=== PATIENT | female | born 1985 | race Caucasian/White ===

== ENCOUNTER 2021-10-19 15:18 | Outpatient (REF) | payer MEDICARE, MEDICAID, SELFPAY ==
--- NOTE | 2021-10-19 12:00 | PAPFT_PTH ---
PATIENT: Marcie Mack LOC: N U#:[id number] AGE/SX: 36/F ROOM: RE10/19/[address]: Macy Fisher NP : [id number] BED: DIS: 10/19/2021 SPEC #: [id number] RECD: 10/19/21 18:15 STATUS: NADYA REQ #: [id number] TANIA: 10/19/21 12:[address]: Macy Fisher NP DEPT: [facility] Cytology RECD BY: Laurie Jane ENTERED: 10/19/21 18:16 SP TYPE: PAPFT OTHR DR: Lance Hernandez Tissues: 1 - CX/ENDOCX FOR PAP SMEARS Procedures: PAP THIN PREP/[facility] Screening HPV DNA PROBE Comments: [id number]
== END 2021-10-19 15:19 | disposition home or self-care (01) ==
LOC: LBN 15:18
PROVIDERS: PCP Internal Medicine; Visit Provider Nurse Practitioner Women's Health
DX: Z11.51 Encounter for screening for human papillomavirus (HPV) (principal); Z12.4 Encounter for screening for malignant neoplasm of cervix; Z01.419 Encounter for gynecological examination (general) (routine) without abnormal findings
CPT/HCPCS: 88142; 87624

== ENCOUNTER 2021-10-28 17:11 | Outpatient (REF) | payer MEDICARE, MEDICAID, SELFPAY ==
[2021-10-28 21:53] LABS: Calculated LDL 79 mg/dL (<100); Cholesterol 146 mg/dL (<200); HDL Cholesterol 45 mg/dL (40-60); TSH 1.38 uIU/mL (0.36-3.74); Triglyceride 114 mg/dL (<150)
[2021-10-28 22:40] LABS: FREE T4 0.96 ng/dL (0.76-1.46)
[2021-10-29 18:25] LABS: Thyroglobulin Antibody 22 U/mL (<=60); Thyroperoxidase Antibody <28 U/mL (<=60)
== END 2021-10-28 17:12 | disposition home or self-care (01) ==
LOC: NCHCN 17:11
PROVIDERS: PCP Internal Medicine; Visit Provider Nurse Practitioner Family
DX: E11.65 Type 2 diabetes mellitus with hyperglycemia (principal); E04.2 Nontoxic multinodular goiter
CPT/HCPCS: 80061; 86376; 84439; 84443

== ENCOUNTER 2021-12-29 14:42 | Outpatient (REF) | payer MEDICARE, MEDICAID, SELFPAY ==
[2021-12-29 20:04] LABS: Anion Gap 11.5 mmol/L (3-11); BUN 16 mg/dL (7-18); CO2 25.5 mmol/L (21.0-32.0); Calcium 9.1 mg/dL (8.5-10.1); Chloride 103 mmol/L (98-107); Glucose 113 mg/dL (74-106); Sodium 140 mmol/L (136-145)
[2021-12-29 20:11] LABS: COMMENT (LAB VIEW ONLY) 160.23 mg/dL; Microalb ug/mg Crea 6.1 ug/mg Cr
== END 2021-12-29 14:43 | disposition home or self-care (01) ==
LOC: NCHCN 14:42
PROVIDERS: PCP Internal Medicine; Visit Provider Nurse Practitioner Family
DX: E11.65 Type 2 diabetes mellitus with hyperglycemia (principal)
CPT/HCPCS: 80048; 82043; 82570

== ENCOUNTER → 2022-03-04 01:36 | Outpatient (CLI) | payer MEDICARE, MEDICAID, SELFPAY ==
--- NOTE | 2022-03-04 07:15 | DI.US_ITS ---
Exam(s) US PELVIS TRANSVAGINAL EXAM: US PELVIS TRANSVAGINAL CLINICAL HISTORY: Heavy bleeding,N92.0. TECHNIQUE: Transabdominal and transvaginal pelvic ultrasound was performed using standard protocol. COMPARISON: No exams were available for comparison FINDINGS: Examination limited by patient body habitus. The right kidney was not visualized sonographically. KIDNEYS: The right kidney was not visualized sonographically. There is very limited visualization of the left kidney. UTERUS: Position: Anteverted. Size: 10.4 long by 3.7 AP by 4.2 transverse cm Endometrium: There is a small amount of fluid seen within the endometrial canal in the lower uterine segment and cervix. Myometrium: The fundus of the uterus is not well visualized. Cervix: Cervical nabothian cyst is seen. OVARIES: Status post right oophorectomy. Left: The left ovary cannot be seen transabdominally or transvaginally. CUL-DE-SAC: Free fluid: None. Other: None. IMPRESSION: 1. Examination is compromised due to patient body habitus. The left ovary, uterine fundus and right kidney were not well visualized sonographically. 2. There is a small amount of fluid in the endometrial canal in the lower uterine segment. 3. Patient is status post right oophorectomy. 4. The left ovary was not visualized transabdominally or transvaginally secondary to the patient body habitus. DATA REPOSITORY:
== END ==
PROVIDERS: PCP Nurse Practitioner Family; Visit Provider Nurse Practitioner Women's Health
DX: N92.0 Excessive and frequent menstruation with regular cycle (principal); Z90.721 Acquired absence of ovaries, unilateral
CPT/HCPCS: 76830; 76856

== ENCOUNTER 2022-07-26 12:01 | Outpatient (REF) | payer MEDICARE, MEDICAID, SELFPAY ==
[2022-07-26 19:29] LABS: Anion Gap 8.4 mmol/L (3-11); BUN 19 mg/dL (7-18); CO2 24.6 mmol/L (21.0-32.0); CREATININE 1.1 mg/dL (0.55-1.02); Calcium 8.9 mg/dL (8.5-10.1); Chloride 106 mmol/L (98-107); Estimated GFR 65.55 (mL/min/1.73m2); Glucose 110 mg/dL (74-106); Potassium 3.9 mmol/L (3.5-5.1); Sodium 139 mmol/L (136-145)
== END 2022-07-26 12:02 | disposition home or self-care (01) ==
LOC: NCHCN 12:01
PROVIDERS: PCP Nurse Practitioner Family; Visit Provider Nurse Practitioner Family
DX: E11.65 Type 2 diabetes mellitus with hyperglycemia (principal)
CPT/HCPCS: 80048

== ENCOUNTER 2022-10-25 13:57 | Outpatient (REF) | payer MEDICARE, MEDICAID, SELFPAY ==
[2022-10-25 18:54] LABS: Abs Immature Grans 0.03 10^3/uL (0.0-0.06); Absolute Basophil Count 0.05 10^3/uL (0.0-0.2); Absolute Eosinophil Count 0.23 10^3/uL (0.0-0.7); Absolute Lymphocyte Count 2.16 10^3/uL (1.2-3.4); Absolute Monocyte Count 0.47 10^3/uL (0.1-0.8); Absolute Neutrophil Count 7.63 10^3/uL (1.2-6.7); Basophils % 0.5; Eosinophils % 2.2; HCT 38.7 % (36.0-46.0); HGB 12.2 g/dL (11.2-15.7); Immature Grans % 0.3; Lymphocytes % 20.4; MCH 26.6 pg (27.0-33.0); MCHC 31.5 % (32.0-36.0); MCV 85 fL (80-95); MPV 10.7 fL (8.0-11.0); Monocytes % 4.4; Neutrophils % 72.2; Platelet Count 332 10^3/uL (130-400); RBC 4.58 10^6/uL (3.93-5.22); RDW 15.3 % (11.7-14.6); RDW-SD 46.7 fL; WBC 10.57 10^3/uL (4.4-10.8)
[2022-10-25 19:00] LABS: ESR 50 mm/hr (0-20)
[2022-10-25 19:03] LABS: ALT 50 U/L (14-59); AST 24 U/L (15-37); Albumin 3.7 g/dL (3.4-5.0); Alkaline Phosphatase 99 U/L (46-116); BUN 16 mg/dL (7-18); Bilirubin, Total 0.2 mg/dL (0.2-1.0); Calcium 9.1 mg/dL (8.5-10.1); Chloride 107 mmol/L (98-107); Estimated GFR 73.49 (mL/min/1.73m2); Glucose 176 mg/dL (74-106); Potassium 3.7 mmol/L (3.5-5.1); Sodium 141 mmol/L (136-145); Total Protein 7.7 g/dL (6.4-8.2)
[2022-10-26 17:58] LABS: Rheumatoid Factor 25.5 IU/mL (<12.0)
[2022-10-27 12:34] LABS: ANA Interpretation Negative (Negative)
== END 2022-10-25 13:58 | disposition home or self-care (01) ==
LOC: NCHCN 13:57
PROVIDERS: PCP Nurse Practitioner Family; Visit Provider Nurse Practitioner Family
DX: R21 Rash and other nonspecific skin eruption (principal); E04.2 Nontoxic multinodular goiter
CPT/HCPCS: 80053; 85652; 85025; 86038; 86431

== ENCOUNTER 2022-11-24 12:55 | Outpatient (REF) | payer MEDICARE, MEDICAID, SELFPAY ==
[2022-11-25 11:46] LABS: Microalb ug/mg Crea 4.7 ug/mg Cr
[2022-11-25 11:52] LABS: BUN 19 mg/dL (7-18); CREATININE 1.1 mg/dL (0.55-1.02); Chloride 107 mmol/L (98-107); Estimated GFR 65.55 (mL/min/1.73m2); Glucose 121 mg/dL (74-106); Potassium 3.8 mmol/L (3.5-5.1); Sodium 138 mmol/L (136-145)
[2022-11-25 12:15] LABS: Calcium 8.9 mg/dL (8.5-10.1)
[2022-11-26 10:29] LABS: Cyclic Citrullinated Peptide <2.5 U/mL (<5.0)
== END 2022-11-24 12:56 | disposition home or self-care (01) ==
LOC: NCHCN 12:55
PROVIDERS: PCP Nurse Practitioner Family; Visit Provider Nurse Practitioner Family
DX: E11.9 Type 2 diabetes mellitus without complications (principal); M25.50 Pain in unspecified joint
CPT/HCPCS: 80048; 86200; 82043; 82570

== ENCOUNTER 2023-01-05 14:47 | Outpatient (REF) | payer MEDICARE, MEDICAID, SELFPAY ==
[2023-01-05 20:48] LABS: Anion Gap 10.2 mmol/L (3-11); BUN 21 mg/dL (7-18); CO2 20.8 mmol/L (21.0-32.0); Calcium 8.9 mg/dL (8.5-10.1); Chloride 110 mmol/L (98-107); Estimated GFR 73.49 (mL/min/1.73m2); Glucose 115 mg/dL (74-106); Sodium 141 mmol/L (136-145)
== END 2023-01-05 14:48 | disposition home or self-care (01) ==
LOC: NCHCN 14:47
PROVIDERS: PCP Nurse Practitioner Family; Visit Provider Nurse Practitioner Family
DX: R94.4 Abnormal results of kidney function studies (principal)
CPT/HCPCS: 80048

== ENCOUNTER 2023-03-23 14:55 | Outpatient (REF) | payer MEDICARE, MEDICAID, SELFPAY ==
[2023-03-25 14:01] LABS: Chlamydia Result Negative (Negative); GC Result Negative (Negative)
== END 2023-03-23 14:56 | disposition home or self-care (01) ==
LOC: LBN 14:55
PROVIDERS: PCP Nurse Practitioner Family; Visit Provider Nurse Practitioner Women's Health
DX: Z11.3 Encounter for screening for infections with a predominantly sexual mode of transmission (principal)
CPT/HCPCS: 87491; 87591

== ENCOUNTER 2023-04-05 18:31 | Outpatient (REF) | payer MEDICARE, MEDICAID, SELFPAY ==
[2023-04-07 09:43] LABS: Hepatitis C Ab w Rflx HCV PCR Negative (Negative)
[2023-04-08 13:23] LABS: SS-A Antibody 2.6 Units (<20.0)
[2023-04-08 13:28] LABS: SS-B (La) Ab, IgG 1.3 Units (<20.0)
== END 2023-04-05 18:32 | disposition home or self-care (01) ==
LOC: NCHCN 18:31
PROVIDERS: PCP Nurse Practitioner Family; Visit Provider Nurse Practitioner Family
DX: M35.00 Sjogren syndrome, unspecified (principal)
CPT/HCPCS: 86803; 86235

== ENCOUNTER → 2023-04-18 02:15 | Outpatient (CLI) | payer MEDICARE, MEDICAID, SELFPAY ==
--- NOTE | 2023-04-18 12:15 | DI.MAMMO_ITS ---
Exam(s) MAMMO SCREENING EXAM: MAMMO SCREENING CLINICAL HISTORY: screening. TECHNIQUE: Bilateral full field digital CC and MLO mammographic images were obtained with 3D tomosyn thesis and utilizing computer aided detection (CAD). COMPARISON: None. This is a baseline mammogram on 38-year-old patient FINDINGS: Fibroglandular tissue pattern is predominately fatty. There are no CAD designations There are no spiculated masses nor malignant appearing microcalcification groups. There is no significant architectural distortion nor skin thickening-retraction. IMPRESSION: No radiographic evidence of malignancy. BI-RADS Category 1 - Negative Breast Density - Category A - Almost entirely fatty Breast density Category C or D implies that the patient has dense breast tissue. Dense breast tissue can make it harder to find cancer on a mammogram. Dense breast tissue is also associated with an incr eased risk of breast cancer. This information about the result of the mammogram report was provided to the patient to raise their awareness. Use this report when you speak with the patient about their risks for breast cancer, which includes their family history. At that time, you may recommend additional screening tests (Ultrasoun d or MRI) as these tests may add significant information. A negative radiographic report should not delay biopsy if a dominant or clinically suspicious mass is present. Up to ten percent of cancers are not identified on mammography. A negative report may reinforce clinical impression. Adenosis and dense breasts may obscure an underlying neoplasm. False positive reports average 6 to 10%. Patient will receive a letter notifying them of these results.
== END ==
PROVIDERS: PCP Nurse Practitioner Family; Visit Provider Nurse Practitioner Women's Health
DX: Z12.31 Encounter for screening mammogram for malignant neoplasm of breast (principal)
CPT/HCPCS: 77063; 77067

== ENCOUNTER 2023-10-05 14:29 | Outpatient (REF) | payer MEDICARE, MEDICAID, SELFPAY ==
[2023-10-05 20:48] LABS: Anion Gap 9.9 mmol/L (3-11); BUN 13 mg/dL (7-18); CO2 26.1 mmol/L (21.0-32.0); CREATININE 0.9 mg/dL (0.55-1.02); Calcium 9.1 mg/dL (8.5-10.1); Chloride 105 mmol/L (98-107); Estimated GFR 82.88 (mL/min/1.73m2); Glucose 108 mg/dL (74-106); Potassium 4.1 mmol/L (3.5-5.1); Sodium 141 mmol/L (136-145); TSH 0.99 uIU/mL (0.36-3.74)
== END 2023-10-05 14:30 | disposition home or self-care (01) ==
LOC: NCHCN 14:29
PROVIDERS: PCP Nurse Practitioner Family; Visit Provider Nurse Practitioner Family
DX: E11.65 Type 2 diabetes mellitus with hyperglycemia (principal); E04.2 Nontoxic multinodular goiter
CPT/HCPCS: 80048; 84443

== ENCOUNTER → 2024-03-26 00:29 | Outpatient (CLI) | payer MEDICARE, MEDICAID, SELFPAY ==
--- NOTE | 2024-03-26 14:05 | DI.RAD_ITS ---
Exam(s) XR FOOT RT COMPLETE EXAM: XR FOOT RT COMPLETE CLINICAL HISTORY: Right foot pain,M79.671. TECHNIQUE: 2D digital imaging was performed. COMPARISON: No exams were available for comparison FINDINGS: 3 views There is dorsal soft tissue swelling over the metatarsals but no fractures evident nor diastasis of t he Lisfranc joint. Great toe metatarsophalangeal joint appears unremarkable as do the other MTP join ts and interphalangeal joints as well as the tarsometatarsal joints. There is a typical exostoses of f the medial cortex of the distal phalanx of the great toe, a common benign occurrence. There is a m oderate size inferior calcaneal spur. Also noted is an enthesophyte on the posterior calcaneus Achil les insertion site. Mild degenerative changes noted in the dorsal aspect of the talonavicular joint. IMPRESSION: Dorsal soft tissue swelling. No fractures. No radiopaque foreign bodies nor gas in soft tissues. N o evidence of osteomyelitis DATA REPOSITORY: RADIATION DOSE DELIVERED:
== END ==
PROVIDERS: PCP Nurse Practitioner Family; Visit Provider Podiatrist
DX: M79.671 Pain in right foot (principal); M79.89 Other specified soft tissue disorders
CPT/HCPCS: 29580; 29850; 73630

== ENCOUNTER 2024-04-18 01:10 | Outpatient (CLI) | payer MEDICARE, MEDICAID, SELFPAY ==
--- NOTE | 2024-04-18 07:00 | DI.RAD_ITS ---
Exam(s) XR FOOT RT COMPLETE EXAM: XR FOOT RT COMPLETE CLINICAL HISTORY: f/u Stress fracture right second metatarsal,M84.374a. TECHNIQUE: 2D digital imaging was performed of the right foot. Three images were obtained. AP, obl ique and lateral views were obtained. COMPARISON: CR XR FOOT RT COMPLETE from 03/26/2024 FINDINGS: BONES: No periosteal reaction is seen in the right 2nd metatarsal bone. There is an oblique lucency seen in the neck of the 4th metatarsal bone. It is only appreciated on the AP view. Artifact versus fracture. Please correlate clinically. No bony destructive lesion is seen. There is an enthesophyt e at the posterior calcaneus. There is a plantar calcaneal spur. JOINTS: No dislocation present. Mild degenerative changes are seen in the foot particularly at the ta lonavicular joint. SOFT TISSUE: Normal. IMPRESSION: 1. Unremarkable appearance of the 2nd metatarsal bone without evidence of periosteal reaction. 2. Lucency seen across the neck of the 4th metatarsal bone on the AP view only. Artifact versus frac ture. Please correlate clinically. DATA REPOSITORY: RADIATION DOSE DELIVERED:
== END 2024-04-18 01:30 ==
LOC: DI 01:10
PROVIDERS: PCP Nurse Practitioner Family; Visit Provider Podiatrist
DX: M79.671 Pain in right foot (principal)
CPT/HCPCS: 20550; 29580; 29850; 73630

== ENCOUNTER → 2024-05-22 09:00 | Outpatient (BNVA) | payer MEDICARE, MEDICAID, SELFPAY | PROVIDERS: PCP Nurse Practitioner Family; Referring Provider Nurse Practitioner Family; Visit Provider Podiatrist | DX: M72.2 Plantar fascial fibromatosis (principal); M84.374D Stress fracture, right foot, subsequent encounter for fracture with routine healing; X58.XXXD Exposure to other specified factors, subsequent encounter; M76.71 Peroneal tendinitis, right leg; Q66.71 Congenital pes cavus, right foot; Q66.72 Congenital pes cavus, left foot | CPT/HCPCS: 99213 ==

== ENCOUNTER 2025-01-01 14:44 | Outpatient (CLI) | payer MEDICARE, MEDICAID, SELFPAY ==
--- NOTE | 2025-01-01 13:45 | DI.RAD_ITS ---
Exam(s) XR SHOULDER LT COMPLETE 2+V EXAM: XR SHOULDER LT COMPLETE 2+V CLINICAL HISTORY: left shoulder pain. TECHNIQUE: 2D digital imaging was performed. Three views. COMPARISON: CR XR SHOULDER MIN 2V RT from 12/19/2024 FINDINGS: BONES: No acute fracture is present. No bony destructive lesion is seen. JOINTS: No dislocation present. Glenohumeral joint space is maintained. Mild spurring at the inferi or AC joint. SOFT TISSUE: Normal. Calcification projecting anterior to the acromion. IMPRESSION: Calcification projecting anterior to the acromion. DATA REPOSITORY: RADIATION DOSE DELIVERED:
== END 2025-01-01 14:45 | disposition home or self-care (01) ==
LOC: DIORS 14:44
PROVIDERS: PCP Nurse Practitioner Family; Referring Provider Nurse Practitioner Family; Visit Provider Student in an Organized Health Care Education/Training Program
DX: M19.011 Primary osteoarthritis, right shoulder; M19.012 Primary osteoarthritis, left shoulder; E66.9 Obesity, unspecified; Z68.44 Body mass index [BMI] 60.0-69.9, adult; E11.9 Type 2 diabetes mellitus without complications
CPT/HCPCS: 99203; 73030

== ENCOUNTER → 2025-01-17 09:19 | Outpatient (BNVA) | payer MEDICARE, MEDICAID, SELFPAY | PROVIDERS: PCP Nurse Practitioner Family; Referring Provider Nurse Practitioner Family; Visit Provider Physician Assistant | DX: Z68.44 Body mass index [BMI] 60.0-69.9, adult (principal); M25.561 Pain in right knee; M25.562 Pain in left knee; M17.0 Bilateral primary osteoarthritis of knee | CPT/HCPCS: 20610 ×2; J1010 ==

== ENCOUNTER 2025-02-01 00:28 | Outpatient (CLI) | payer MEDICARE, MEDICAID, SELFPAY ==
--- NOTE | 2025-02-01 11:06 | DI.RAD_ITS ---
Exam(s) RF JOINT INJ. FLUORO GUID RAD EXAM: RF JOINT INJ. FLUORO GUID RAD CLINICAL HISTORY: RIGHT SHOULDER PAIN,arthritis rt glenohumeral joint,m19.011,fluoro guided. TECHNIQUE: 2D and realtime digital imaging was performed. CONTRAST MATERIAL: Intra-articular [id number]-598-8 cc COMPARISON: No exams were available for comparison FINDINGS: This fluoroscopic guided right shoulder injection was performed at the request of the referring ortho pedic surgeon. The patient was consented prior to this procedure. Patient was placed in the supine position on the fluoroscopy table. Using sterile technique and adequate skin-subcutaneous anesthesia, fluoroscopic guidance was used to advance a 22 gauge spinal needle into the glenohumeral joint using an anterior approach. Intra-artic ular position was confirmed with injection of 2 cc iodinated contrast. Thereafter a sterile solution of 40 milligram Depo-Medrol and 3 cc of 0.5 percent bupivacaine was inj ected into the joint space. Needle was removed. Band-Aid applied. The patient tolerated this procedure well and there were no intraprocedural complications. IMPRESSION: Successful right shoulder glenohumeral joint fluoroscopic guided steroid injection, as described afsaneh vera RADIATION DOSE DELIVERED: Kar=11.8mGy
--- NOTE | 2025-02-01 11:50 | DI.RAD_ITS ---
Exam(s) RF JOINT INJ. FLUORO GUID RAD EXAM: RF JOINT INJ. FLUORO GUID RAD CLINICAL HISTORY: LEFT SHOULDER PAIN,arthritis lt glenohumeral joint,m19.012. TECHNIQUE: 2D and realtime digital imaging was performed. CONTRAST MATERIAL: Oral barium Oral water soluble contrast was administered. COMPARISON: No exams were available for comparison FINDINGS: This left fluoroscopic guided shoulder glenohumeral joint injection performed at the request of the jose milligan orthopedic surgeon. Patient was consented prior to this procedure. Patient was placed in the supine position on the fluoroscopy table. Using sterile technique and adequate skin-subcutaneous anesthesia, fluoroscopic guidance was used to advance a 22 gauge spinal needle into the glenohumeral joint via an anterior approach. Intra-articul ar position was confirmed with injection of 1-2 cc of iodinated contrast. Thereafter are a sterile s olution of 40 milligram Depo-Medrol and 3 cc of 0.5 percent bupivacaine was injected into the joint s pace. The needle was removed. Band-Aid applied. Patient tolerated this procedure well and there were no intraprocedural complications.. IMPRESSION: Successful left shoulder glenohumeral joint steroid injection using fluoroscopic guidance RADIATION DOSE DELIVERED: Kar=9.93mGy
[2025-02-01] MEDS: methylPREDNISolone ACETATE 40 MG/ML VIAL IM (12:05)
[2025-02-01] MEDS: Bupivacaine 0.5% Pres-Free 10 ML VIAL 5 ML IJ (12:06)
[2025-02-01] MEDS: Omnipaque 300 MG/ML 10 ML BTL IJ (12:08)
[2025-02-01] MEDS: Lidocaine 1% Pres-Free 30 ML VIAL IJ (12:09)
== END 2025-02-01 00:48 ==
LOC: DI 00:29
PROVIDERS: PCP Nurse Practitioner Family; Visit Provider Student in an Organized Health Care Education/Training Program
DX: M19.011 Primary osteoarthritis, right shoulder (principal); M19.012 Primary osteoarthritis, left shoulder
CPT/HCPCS: 20610; 77002; J0665; J1010

== ENCOUNTER 2025-05-16 14:56 | Outpatient (REF) | payer MEDICARE, MEDICAID, SELFPAY ==
[2025-05-16 19:52] LABS: ALT 26 U/L (14-59); AST 15 U/L (15-37); Albumin 3.7 g/dL (3.4-5.0); Alkaline Phosphatase 80 U/L (46-116); Anion Gap 10.0 mmol/L (3-11); BUN 12 mg/dL (7-18); Bilirubin, Total 0.3 mg/dL (0.2-1.0); CO2 25.0 mmol/L (21.0-32.0); Calcium 9.6 mg/dL (8.5-10.1); Calculated LDL 72 mg/dL (<100); Chloride 102 mmol/L (98-107); Cholesterol 145 mg/dL (<200); Estimated GFR 64.34 (mL/min/1.73m2); Glucose 116 mg/dL (74-106); HDL Cholesterol 46 mg/dL (>or=50); Potassium 3.9 mmol/L (3.5-5.1); Sodium 137 mmol/L (136-145); Total Protein 7.7 g/dL (6.4-8.2); Triglyceride 138 mg/dL (<150)
== END 2025-05-16 14:57 | disposition home or self-care (01) ==
LOC: NCHCN 14:56
PROVIDERS: PCP Nurse Practitioner Family; Visit Provider Nurse Practitioner Family
DX: Z13.220 Encounter for screening for lipoid disorders (principal)
CPT/HCPCS: 80053; 80061

== ENCOUNTER 2025-07-03 01:25 | Outpatient (CLI) | payer MEDICARE, MEDICAID, SELFPAY ==
--- NOTE | 2025-07-03 12:43 | DI.MAMMO_ITS ---
Exam(s) MAMMO SCREENING EXAM: MAMMO SCREENING CLINICAL HISTORY: screening. TECHNIQUE: Bilateral full field digital CC and MLO mammographic images were obtained with 3D tomosynthesis and utilizing computer aided detection (CAD). COMPARISON: Prior baseline mammogram of April 2023 was reviewed FINDINGS: There has been no significant change in the appearance and distribution of the fibroglandular tissue. There are no CAD designations. There are no new spiculated masses nor malignant appearing microcalcification groups. There is no significant architectural distortion nor skin thickening-retraction. IMPRESSION: No radiographic evidence of malignancy. BI-RADS Category 1 - Negative Breast Density - Category A - The breast are almost entirely fatty. Breast density Category C or D implies that the patient has dense breast tissue. Dense breast tissue can make it harder to find cancer on a mammogram. Dense breast tissue is also associated with an increased risk of breast cancer. This information about the result of the mammogram report was provided to the patient to raise their awareness. Use this report when you speak with the patient about their risks for breast cancer, which includes their family history. At that time, you may recommend additional screening tests (Ultrasound or MRI) as these tests may add significant information. A negative radiographic report should not delay biopsy if a dominant or clinically suspicious mass is present. Up to ten percent of cancers are not identified on mammography. A negative report may reinforce clinical impression. Adenosis and dense breasts may obscure an underlying neoplasm. False positive reports average 6 to 10%. Patient will receive a letter notifying them of these results.
== END 2025-07-03 01:45 ==
LOC: DI 01:25
PROVIDERS: PCP Nurse Practitioner Family; Visit Provider Nurse Practitioner Women's Health
DX: Z12.31 Encounter for screening mammogram for malignant neoplasm of breast (principal); R92.323 Mammographic fibroglandular density, bilateral breasts
CPT/HCPCS: 77063; 77067